=== PATIENT | male | born 1935 | race Caucasian/White ===

== ENCOUNTER 2022-09-01 10:26 | Inpatient (IN) | payer BC, MEDICARE ==
[~2022-09-01] VITALS: Ht 167.6 cm; Wt 69.1 kg
[~2022-09-01 10:26] MED LIST: CLIN150C8 PO
--- NOTE | 2022-09-01 10:53 | NUR ---
PER EXTERNAL MEDICATION HISTORY, PATIENT HAS NOT RECEIVED RX FOR ANY TYPE OF BLOOD THINNERS IN THE PAST 6-7 MONTHS. PATIENT TAKING METOPROLOL AND AMLODIPINE FOR HTN.
[2022-09-01 11:10] LABS: BASOPHILS # (AUTO) 0.1 X10'3 (0-0.2); BASOPHILS % (AUTO) 1.3 % (0-1); EOSINOPHILS # (AUTO) 0.4 X10'3 (0-0.9); EOSINOPHILS % (AUTO) 5.2 % (0-6); HEMATOCRIT 30.9 % (42.0-52.0); HEMOGLOBIN 10.1 g/dl (14.0-17.9); LYMPHOCYTES # (AUTO) 1.5 X10'3 (1.1-4.8); LYMPHOCYTES % (AUTO) 19.7 % (21-51); MEAN CORPUSCULAR HGB CONC 32.8 g/dL (33.0-36.5); MEAN CORPUSCULAR VOLUME 94.4 FL (78-98); MEAN PLATELET VOLUME 6.9 FL (7.4-10.4); MONOCYTES # (AUTO) 0.4 X10'3 (0-0.9); MONOCYTES % (AUTO) 5.3 % (2-12); NEUTROPHILS % (AUTO) 68.5 % (42-75); PLATELET COUNT 364 X10'3 (140-440); RED BLOOD COUNT 3.28 X10'6 (4.70-6.10); RED CELL DISTRIBUTION WIDTH 14.3 % (11.5-14.5); WHITE BLOOD COUNT 7.4 X10'3 (4.5-11.0)
[2022-09-01 11:11] LABS: ALANINE AMINOTRANSFERASE 22 U/L (12-78); ALBUMIN 3.6 G/DL (3.4-5.0); ALKALINE PHOSPHATASE 70 IU/L (46-116); ANION GAP 11 (8-16); ASPARTATE AMINO TRANSFERASE 17 U/L (10-37); BILIRUBIN,TOTAL 0.3 MG/DL (0.1-1.0); BLOOD UREA NITROGEN 38 MG/DL (7-18); BUN/CREATININE RATIO 14.2 (5.4-32.0); CALCIUM 8.9 MG/DL (8.5-10.1); CHLORIDE 107 MMOL/L (99-107); CREATININE 2.67 MG/DL (0.60-1.10); GLUCOSE 114 MG/DL (70-104); POTASSIUM 4.2 MMOL/L (3.5-5.1); SODIUM 144 MMOL/L (135-145); TOTAL CARBON DIOXIDE 25.9 MMOL/L (24-32); TOTAL PROTEIN 7.1 G/DL (6.4-8.2); eGFR 23 ML/MIN
[2022-09-01] MEDS ORDERED: MECL-226 PO (12:33)
[2022-09-01] MEDS ORDERED: normal saline 1000ML IV soln IVB ONE (12:35)
[2022-09-01] MEDS ORDERED: meclizine 12.5mg tablet PO ONE (12:35)
[2022-09-01] MEDS ORDERED: ondansetron/PF 4mg/2ml inj IV PRN (14:25)
[2022-09-01] MEDS ORDERED: potassium Cl 40MEQ/1/2NS 520ml 520 ML IV PRN (14:25)
[2022-09-01] MEDS: normal saline 1000ml 1,000 ML IV SCH (14:25)
[2022-09-01] MEDS ORDERED: magnesium 4gm in 100ml NS 100 ML IV PRN (14:25)
[2022-09-01] MEDS ORDERED: mag hydrox/Alum hydrox/simeth 30ml oral suspension PO PRN (14:25)
[2022-09-01] MEDS ORDERED: potassium Cl 20 mEq SR tablet PO PRN ×2 (14:25)
[2022-09-01] MEDS ORDERED: magnesium hydroxide 30ml (MOM) UD suspension PO PRN (14:25)
[2022-09-01] MEDS ORDERED: magnesium Cl slow-release 64mg tablet PO PRN (14:25)
[2022-09-01] MEDS ORDERED: acetaminophen 325mg tablet PO PRN (14:25)
[2022-09-01] MEDS ORDERED: meclizine 12.5mg tablet PO PRN (14:35)
[2022-09-01] MEDS: clindamycin 150mg capsule PO SCH (16:11)
--- NOTE | 2022-09-01 18:00 | NUR ---
Patient in room PCU 3025. I have received report from Megan FREEMAN and had the opportunity to ask questions and assume patient care.
[2022-09-01 18:02] VITALS: BP 166/68
--- NOTE | 2022-09-01 18:03 | NUR ---
pt arrived to unit at 1800. Applied heart monitor and obtained vital signs. no s/s of pain or distress at this time. Provided pt with a dinner tray, gave him his call light and urinal within reach. bed in low position. fluids infusing into a 20g to the right ac. Will endorse to noc shift rn.
[2022-09-01 19:00] VITALS: BP 128/74
[2022-09-01] MEDS: K and/or MAG REPLACEMENT MC SCH (20:00)
[2022-09-01] MEDS: docusate sod 100mg capsule PO SCH (20:00)
[2022-09-01] MEDS: heparin, porcine 5000 units/ml vial SQ SCH (20:55)
[2022-09-02] MEDS: clindamycin 150mg capsule PO SCH ×3 (01:16→15:45)
[2022-09-02] MEDS: normal saline 1000ml 1,000 ML IV SCH ×3 (01:17→20:25)
[2022-09-02 06:00] VITALS: BP 154/73
[2022-09-02 06:30] LABS: BASOPHILS # (AUTO) 0.1 X10'3 (0-0.2); EOSINOPHILS # (AUTO) 0.3 X10'3 (0-0.9); EOSINOPHILS % (AUTO) 4.3 % (0-6); HEMOGLOBIN 9.4 g/dl (14.0-17.9); LYMPHOCYTES # (AUTO) 1.7 X10'3 (1.1-4.8); LYMPHOCYTES % (AUTO) 23.4 % (21-51); MEAN CORPUSCULAR HEMOGLOBIN 31.4 PG (27.0-31.0); MEAN CORPUSCULAR HGB CONC 33.6 g/dL (33.0-36.5); MEAN CORPUSCULAR VOLUME 93.6 FL (78-98); MEAN PLATELET VOLUME 6.8 FL (7.4-10.4); MONOCYTES # (AUTO) 0.8 X10'3 (0-0.9); MONOCYTES % (AUTO) 11.4 % (2-12); NEUTROPHILS # (AUTO) 4.3 X10'3 (1.8-7.7); NEUTROPHILS % (AUTO) 59.9 % (42-75); PLATELET COUNT 296 X10'3 (140-440); RED BLOOD COUNT 2.99 X10'6 (4.70-6.10); RED CELL DISTRIBUTION WIDTH 14.2 % (11.5-14.5); WHITE BLOOD COUNT 7.2 X10'3 (4.5-11.0)
--- NOTE | 2022-09-02 06:56 | NUR ---
Problems reprioritized. Patient report given, questions answered & plan of care reviewed with Ayesha FREEMAN.
[2022-09-02 06:58] LABS: ALANINE AMINOTRANSFERASE 13 U/L (12-78); ALBUMIN 2.8 G/DL (3.4-5.0); ALBUMIN/GLOBULIN RATIO 0.9 (1.1-1.5); ALKALINE PHOSPHATASE 59 IU/L (46-116); ANION GAP 8 (8-16); ASPARTATE AMINO TRANSFERASE 18 U/L (10-37); BILIRUBIN,TOTAL 0.3 MG/DL (0.1-1.0); BLOOD UREA NITROGEN 33 MG/DL (7-18); CALCIUM 8.4 MG/DL (8.5-10.1); CHLORIDE 110 MMOL/L (99-107); CREATININE 2.36 MG/DL (0.60-1.10); GLUCOSE 92 MG/DL (70-104); MAGNESIUM 1.9 MG/DL (1.5-2.4); POTASSIUM 3.8 MMOL/L (3.5-5.1); SODIUM 144 MMOL/L (135-145); TOTAL CARBON DIOXIDE 25.6 MMOL/L (24-32); TOTAL PROTEIN 5.8 G/DL (6.4-8.2); eGFR 26 ML/MIN
[2022-09-02] MEDS: K and/or MAG REPLACEMENT MC SCH ×2 (08:00→19:54)
[2022-09-02] MEDS: docusate sod 100mg capsule PO SCH ×2 (08:00→20:44)
[2022-09-02] MEDS: heparin, porcine 5000 units/ml vial SQ SCH ×2 (09:05→20:44)
[2022-09-02 10:00] VITALS: BP 91/49
[2022-09-02] MEDS: clopidogrel 75mg tablet PO SCH (15:45)
[2022-09-02] MEDS: aspirin 81mg, enteric-coated 1 TAB TABLET.DR PO SCH (15:45)
--- NOTE | 2022-09-02 16:11 | NUR ---
Spoke with son, number [phone] Peter Green stated a few years ago, it seemed his dad had a mini stroke, he was talking to him and words started to slur and he couldn't get them out correctly.
--- NOTE | 2022-09-02 17:30 | NUR ---
PAGER ID: [phone] MESSAGE: [phone] Eren Gene Patient need a lipid panel please and thank you. Ayesha [id number]
[2022-09-02 18:00] VITALS: BP 155/61
[2022-09-02 18:02] LABS: CHOL/HDL RATIO 5.3 (0.00-4.99); CHOLESTEROL 237 MG/DL (0-200); HDL CHOLESTEROL 45 MG/DL (35-60); LDL CHOLESTEROL 156 MG/DL (50-100); TRIGLYCERIDES 126 MG/DL (20-135)
--- NOTE | 2022-09-02 18:18 | NUR ---
Problems reprioritized. Patient report given, questions answered & plan of care reviewed with Carolyn FREEMAN.
[2022-09-02] MEDS ORDERED: atorvastatin 20mg tablet PO SCH (21:00)
[2022-09-02 22:00] VITALS: BP 173/74
[2022-09-03] MEDS: clindamycin 150mg capsule PO SCH ×2 (01:41→08:18)
[2022-09-03 02:00] VITALS: BP 152/78
[2022-09-03 06:00] VITALS: BP 166/68
[2022-09-03 07:12] LABS: BASOPHILS # (AUTO) 0.1 X10'3 (0-0.2); BASOPHILS % (AUTO) 0.9 % (0-1); EOSINOPHILS # (AUTO) 0.3 X10'3 (0-0.9); EOSINOPHILS % (AUTO) 5.6 % (0-6); HEMATOCRIT 26.8 % (42.0-52.0); LYMPHOCYTES # (AUTO) 1.7 X10'3 (1.1-4.8); LYMPHOCYTES % (AUTO) 26.9 % (21-51); MEAN CORPUSCULAR HEMOGLOBIN 31.5 PG (27.0-31.0); MEAN CORPUSCULAR HGB CONC 33.6 g/dL (33.0-36.5); MEAN CORPUSCULAR VOLUME 93.7 FL (78-98); MONOCYTES # (AUTO) 0.7 X10'3 (0-0.9); MONOCYTES % (AUTO) 10.6 % (2-12); NEUTROPHILS # (AUTO) 3.5 X10'3 (1.8-7.7); PLATELET COUNT 283 X10'3 (140-440); RED BLOOD COUNT 2.86 X10'6 (4.70-6.10); RED CELL DISTRIBUTION WIDTH 14.4 % (11.5-14.5); WHITE BLOOD COUNT 6.3 X10'3 (4.5-11.0)
[2022-09-03 07:49] LABS: % IRON SATURATION 28 % (11-46); IRON 60 UG/DL (53-167); TOTAL IRON BINDING CAPACITY 215 UG/DL (259-388)
[2022-09-03 07:58] LABS: ALANINE AMINOTRANSFERASE 16 U/L (12-78); ALBUMIN 2.7 G/DL (3.4-5.0); ALBUMIN/GLOBULIN RATIO 0.9 (1.1-1.5); ALKALINE PHOSPHATASE 57 IU/L (46-116); ANION GAP 8 (8-16); ASPARTATE AMINO TRANSFERASE 16 U/L (10-37); BILIRUBIN,TOTAL 0.2 MG/DL (0.1-1.0); BLOOD UREA NITROGEN 35 MG/DL (7-18); BUN/CREATININE RATIO 14.9 (5.4-32.0); CALCIUM 8.4 MG/DL (8.5-10.1); CHLORIDE 111 MMOL/L (99-107); CREATININE 2.35 MG/DL (0.60-1.10); FERRITIN 180 NG/ML (26-388); GLUCOSE 103 MG/DL (70-104); MAGNESIUM 1.9 MG/DL (1.5-2.4); POTASSIUM 3.9 MMOL/L (3.5-5.1); SODIUM 143 MMOL/L (135-145); TOTAL CARBON DIOXIDE 24.1 MMOL/L (24-32); TOTAL PROTEIN 5.8 G/DL (6.4-8.2); eGFR 26 ML/MIN
[2022-09-03] MEDS: docusate sod 100mg capsule PO SCH (08:19)
[2022-09-03] MEDS: aspirin 81mg, enteric-coated 1 TAB TABLET.DR PO SCH (08:20)
[2022-09-03] MEDS: clopidogrel 75mg tablet PO SCH (08:21)
[2022-09-03] MEDS: heparin, porcine 5000 units/ml vial SQ SCH (08:24)
[2022-09-03] MEDS ORDERED: AMLO2.5T5 PO (09:12)
[2022-09-03] MEDS ORDERED: LEVO50TA8 PO (09:12)
[2022-09-03] MEDS ORDERED: ALPR0.5T8 PO (09:12)
[2022-09-03] MEDS ORDERED: METO-395 PO (09:12)
[2022-09-03 10:34] VITALS: BP 162/76
--- NOTE | 2022-09-03 11:00 | NUR ---
as clinical instructor, i reviewed student nurse charting
[2022-09-03] MEDS ORDERED: ASPI-1071 PO (12:56)
[2022-09-03] MEDS ORDERED: ATOR20TA66 PO (12:56)
== END 2022-09-03 14:21 | disposition home or self-care (01) | DRG 312 ==
LOC: ER 10:27 → ED HOLD 14:34 → EDBEDREQ 16:23 → PCU 3S 17:46
PROVIDERS: ADMIT Internal Medicine; ATTEND Internal Medicine
DX: I95.1 Orthostatic hypotension (principal); N17.0 Acute kidney failure with tubular necrosis; E86.0 Dehydration; D64.9 Anemia, unspecified; W18.39XA Other fall on same level, initial encounter; E03.9 Hypothyroidism, unspecified; I12.9 Hypertensive chronic kidney disease with stage 1 through stage 4 chronic kidney disease, or unspecified chronic kidney disease; N18.9 Chronic kidney disease, unspecified; S70.02XA Contusion of left hip, initial encounter; Z85.038 Personal history of other malignant neoplasm of large intestine; Z85.46 Personal history of malignant neoplasm of prostate; Z92.3 Personal history of irradiation; Z88.5 Allergy status to narcotic agent; Y93.89 Activity, other specified; Y92.89 Other specified places as the place of occurrence of the external cause; Y99.8 Other external cause status; Z79.899 Other long term (current) drug therapy
CPT/HCPCS: 36415; 70450; 70551; 71045; 73502; 80053; 80061; 82607; 82728; 83540; 83550; 83735; 83880; 84484; 85025; 93005; 93306; 93880; 96360; 97116; 97161; 97530; 99285; G0378; J1644; J7030; J8597